=== PATIENT | male | born 1985 | race Caucasian/White ===

== ENCOUNTER 2017-08-20 14:39 | Emergency (ER) | payer MEDICAID ==
[~2017-08-20] VITALS: Ht 172.7 cm; Wt 90.7 kg
[2017-08-20 14:48] VITALS: BP_SYST 114
[2017-08-20 15:10] LABS: BILIRUBIN,URINE NEGATIVE (NEGATIVE); BLOOD, URINE NEGATIVE (NEGATIVE); CLARITY/URINE CLEAR (CLEAR); COLOR,URINE YELLOW (YELLOW); GLUCOSE,URINE NEGATIVE (NEGATIVE); KETONES,URINE NEGATIVE (NEGATIVE); LEUKOCYTE ESTERASE ,URINE NEGATIVE (NEGATIVE); NITRITE, URINE NEGATIVE (NEGATIVE); PROTEIN URINE NEGATIVE (NEGATIVE); UROBILINOGEN,URINE 0.2 (0.2-1.0)
--- NOTE | 2017-08-20 15:15 | NUR ---
Patient to ER bed 3, to await MD evaluation.
[2017-08-20 15:23] LABS: BARBITURATE, URINE NEGATIVE (NEG <=200); BENZODIAZEPINE, URINE NEGATIVE (NEG <=150); CANNABINOID, URINE NEGATIVE (NEG <=50); COCAINE, URINE NEGATIVE (NEG <=150); METHAMPHETAMINES SCREEN,URINE POSITIVE (NEG <=500); OPIATE, URINE NEGATIVE (NEG <=100); PHENCYCLIDINE SCREEN,URINE NEGATIVE (NEG <=25); UR TRICYCLIC ANTIDEPRESSANTS NEGATIVE (NEG <=300); URINE AMPHETAMINE POSITIVE (NEG <=500); URINE METHADONE NEGATIVE (NEG <=200); URINE OXYCODONE SCREEN NEGATIVE (NEG <=100); URINE PROPOXYPHENE SCREEN NEGATIVE (NEG <=300)
--- NOTE | 2017-08-20 15:25 | NUR ---
Dr Frederick at bedside to evaluate patient.
[2017-08-20] MEDS ORDERED: ONDANSETRON 4 MG ODT TAB PO ONE (15:30)
[2017-08-20] MEDS ORDERED: traMADol HCL HCL 50 MG TABLET (ULTRAM) PO ONE (15:30)
[2017-08-20] MEDS ORDERED: KETOROLAC TROMETHAMINE 60 MG/2 ML VIAL IM ONE (15:30)
--- NOTE | 2017-08-20 15:40 | NUR ---
Patient to ER via triage with c/o back pain, dizziness, and nausea. Patient reports taking [place] at home for pain without relief. Patient is awake, alert and oriented in no acute distress. Patient able to ambulate to room with slow, steady gait. No c/o pain/sob upon exertion. Patient has been and evaluated by Dr Frederick. Will continue to observe and assess.
--- NOTE | 2017-08-20 16:25 | NUR ---
Patient given written and verbal discharge instructions and verbalizes understanding. ER MD discussed with patient the results and treatment provided. Patient in stable condition. ID arm band removed. Rx of zofran, motrin, flexeril, tramadol given. Patient educated on pain management and to follow up with PMD. Pain Scale 2/10. Opportunity for questions provided and answered.
[2017-08-20 16:26] VITALS: BP_SYST 112
== END 2017-08-20 16:26 | disposition home or self-care (01) ==
LOC: SED 14:39
DX: M54.40 Lumbago with sciatica, unspecified side (principal)
CPT/HCPCS: 80307; 81003; 93005; 96372; 99285; J1885; Q0162

== ENCOUNTER 2017-08-22 13:09 | Emergency (ER) | payer MEDICAID ==
[~2017-08-22] VITALS: Ht 172.7 cm; Wt 90.7 kg
[2017-08-22 13:15] VITALS: BP_SYST 121
--- NOTE | 2017-08-22 13:26 | NUR ---
Patient to ER bed 8 to gown for evaluation. Side rails up. Report given to Corinna MOJICA
--- NOTE | 2017-08-22 13:29 | NUR ---
ER at bedside examining patient.
[2017-08-22 13:41] LABS: BILIRUBIN,URINE NEGATIVE (NEGATIVE); BLOOD, URINE NEGATIVE (NEGATIVE); CLARITY/URINE CLEAR (CLEAR); COLOR,URINE YELLOW (YELLOW); GLUCOSE,URINE NEGATIVE (NEGATIVE); KETONES,URINE NEGATIVE (NEGATIVE); LEUKOCYTE ESTERASE ,URINE NEGATIVE (NEGATIVE); NITRITE, URINE NEGATIVE (NEGATIVE); PH,URINE 5.5 (5.0-8.0); PROTEIN URINE NEGATIVE (NEGATIVE); UROBILINOGEN,URINE 0.2 (0.2-1.0)
[2017-08-22] MEDS ORDERED: ASPIRIN 325 MG TABLET PO ONE (13:45)
[2017-08-22] MEDS ORDERED: LORazepam 2 MG/ML VIAL IVP ONE (13:45)
--- NOTE | 2017-08-22 13:45 | NUR ---
Pt complains of numbness to all areas of the body, arms, legs, chest and hands since this morning after the shower. Pt has some weakness and chest wall pain that does not radiate anywhere. Pt is able to communicate in full sentences, denies SOB, n/v or fever. Pt ambulated into ER with no noted difficulty. No other injuries/complaints per pt or noted.
[2017-08-22 13:53] LABS: BASOPHILS # (AUTO) 0.1 K/uL (0.0-0.2); EOSINOPHILS # (AUTO) 0.2 K/uL (0.0-0.4); EOSINOPHILS % (AUTO) 3.2 % (0.0-4.0); HEMATOCRIT 52.5 % (36-54); HEMOGLOBIN 17.1 g/dL (14.0-18.0); LYMPHOCYTES # (AUTO) 2.6 K/uL (1.0-5.5); LYMPHOCYTES % (AUTO) 39.4 % (20.5-51.5); MEAN CORPUSCULAR HEMOGLOBIN 29 pg (27-31); MEAN CORPUSCULAR HGB CONC 33 % (32-36); MEAN CORPUSCULAR VOLUME 88 fL (79.0-98.0); MONOCYTES # (AUTO) 0.3 K/uL (0.0-1.0); MONOCYTES % (AUTO) 4.7 % (1.7-9.3); NEUTROPHILS # (AUTO) 3.5 K/uL (1.8-7.7); NEUTROPHILS % (AUTO) 51.7 % (40.0-70.0); PLATELET COUNT (AUTO) 270 K/uL (130-430); RED BLOOD CELL COUNT(AUTO) 5.97 MIL/uL (4.2-6.2); RED CELL DISTRIBUTION WIDTH 12.7 % (9.0-15.0); WHITE BLOOD COUNT (AUTO) 6.7 K/uL (4.8-10.8)
[2017-08-22 13:56] LABS: METHAMPHETAMINES SCREEN,URINE POSITIVE (NEG <=500); URINE AMPHETAMINE POSITIVE (NEG <=500)
[2017-08-22 13:57] LABS: BARBITURATE, URINE NEGATIVE (NEG <=200); BENZODIAZEPINE, URINE NEGATIVE (NEG <=150); CANNABINOID, URINE NEGATIVE (NEG <=50); COCAINE, URINE NEGATIVE (NEG <=150); OPIATE, URINE NEGATIVE (NEG <=100); PHENCYCLIDINE SCREEN,URINE NEGATIVE (NEG <=25); UR TRICYCLIC ANTIDEPRESSANTS NEGATIVE (NEG <=300); URINE METHADONE NEGATIVE (NEG <=200); URINE OXYCODONE SCREEN NEGATIVE (NEG <=100); URINE PROPOXYPHENE SCREEN NEGATIVE (NEG <=300)
[2017-08-22 14:08] LABS: ANION GAP 6 (5-15); CALCIUM 9.4 mg/dL (8.4-11.0); CHLORIDE 102 mmol/L (98-107); CREATININE 0.97 mg/dL (0.55-1.30); GLUCOSE 90 mg/dL (70-99); POTASSIUM 4.1 mmol/L (3.5-5.1); SODIUM SERUM 136 mmol/L (136-145); UREA NITROGEN, BLOOD 9 mg/dL (8-21)
[2017-08-22 14:11] LABS: GFR AFRICAN AMERICAN 116 mL/min (>90)
[2017-08-22 14:14] LABS: ALANINE AMINOTRANSFERASE 39 U/L (12-78); ALBUMIN 3.5 g/dL (3.4-4.8); ALCOHOL, BLOOD 4 mg/dL (<10); ASPARTATE AMINOTRANSFERASE 30 U/L (10-37); TOTAL BILIRUBIN 0.3 mg/dL (0.0-1.0)
[2017-08-22] MEDS ORDERED: NACL 0.9% 1,000 ML IV ONE (14:15)
[2017-08-22] MEDS ORDERED: LORazepam 2 MG/ML VIAL (FOR ER USE) ONE (14:18)
--- NOTE | 2017-08-22 14:20 | NUR ---
Medication was given to pt, tolerated it well. No noted adverse reaction, will continue to monitor.
[2017-08-22 14:44] LABS: ACETAMINOPHEN < 1 ug/mL (1-30)
[2017-08-22 15:16] VITALS: BP_SYST 118
--- NOTE | 2017-08-22 15:16 | NUR ---
Patient given written and verbal discharge instructions and verbalizes understanding. ER MD discussed with patient the results and treatment provided. Patient in stable condition. ID arm band removed. IV catheter removed intact and dressing applied, no active bleeding. Rx of ativan given. Patient educated on pain management and to follow up with PMD. Pain Scale 0. Opportunity for questions provided and answered.
== END 2017-08-22 15:16 | disposition home or self-care (01) ==
LOC: SED 13:09
DX: F41.9 Anxiety disorder, unspecified (principal); F15.10 Other stimulant abuse, uncomplicated; Z87.891 Personal history of nicotine dependence
CPT/HCPCS: 36415; 71045; 80053; 80307; 81003; 82550; 84484; 85025; 85610; 85730; 93005; 96361; 96374; 99285; G0480; G0481; G0482; J2060; J7030

== ENCOUNTER 2017-08-30 20:16 | Emergency (ER) | payer MEDICAID ==
[~2017-08-30] VITALS: Ht 172.7 cm; Wt 90.7 kg
[2017-08-30 20:31] VITALS: BP_SYST 125
--- NOTE | 2017-08-30 22:37 | NUR ---
Patient to ER bed 4 to gown for evaluation. Side rails up. Report given to GALINA HURLEY.
[2017-08-30 23:24] LABS: BASOPHILS # (AUTO) 0.1 K/uL (0.0-0.2); BASOPHILS % (AUTO) 0.6 % (0.0-2.0); EOSINOPHILS # (AUTO) 0.6 K/uL (0.0-0.4); EOSINOPHILS % (AUTO) 7.5 % (0.0-4.0); HEMOGLOBIN 14.9 g/dL (14.0-18.0); LYMPHOCYTES # (AUTO) 3.6 K/uL (1.0-5.5); LYMPHOCYTES % (AUTO) 43.2 % (20.5-51.5); MEAN CORPUSCULAR HEMOGLOBIN 29 pg (27-31); MEAN CORPUSCULAR HGB CONC 34 % (32-36); MEAN CORPUSCULAR VOLUME 86 fL (79.0-98.0); MONOCYTES # (AUTO) 0.7 K/uL (0.0-1.0); MONOCYTES % (AUTO) 8.1 % (1.7-9.3); NEUTROPHILS # (AUTO) 3.5 K/uL (1.8-7.7); NEUTROPHILS % (AUTO) 40.6 % (40.0-70.0); PLATELET COUNT (AUTO) 361 K/uL (130-430); RED BLOOD CELL COUNT(AUTO) 5.11 MIL/uL (4.2-6.2); RED CELL DISTRIBUTION WIDTH 12.8 % (9.0-15.0); WHITE BLOOD COUNT (AUTO) 8.5 K/uL (4.8-10.8)
[2017-08-30 23:38] LABS: CALCIUM 8.9 mg/dL (8.4-11.0); CREATININE 0.9 mg/dL (0.55-1.30)
[2017-08-30 23:42] LABS: ALBUMIN 3.5 g/dL (3.4-4.8); TOTAL BILIRUBIN 0.3 mg/dL (0.0-1.0)
--- NOTE | 2017-08-30 23:42 | NUR ---
PT CAME IN WITH A COMPLAINT OF DIZZINESS AND HEADACHE 12/09, NO OTHER COMPLAINT AT THIS TIME. NO FEVER NOTED. AAOX4 AND AMBULATORY. SAFETY PRECAUTION IDENTIFIED, NO ACUTE DISTRESS AT THIS TIME. WILL CONTINUE TO MONITOR PT.
--- NOTE | 2017-08-30 23:46 | NUR ---
BUD MACHADO AT BEDSIDE FOR MEDICAL EVALUATION.
[2017-08-31 00:20] VITALS: BP_SYST 115
--- NOTE | 2017-08-31 00:20 | NUR ---
Patient given written and verbal discharge instructions and verbalizes understanding. ER MD MACHADO discussed with patient the results and treatment provided. Patient in stable condition. ID arm band removed. Patient educated on pain management and to follow up with PMD. Pain Scale 0/10. Opportunity for questions provided and answered.
== END 2017-08-31 00:20 | disposition home or self-care (01) ==
LOC: SED 20:16
DX: R51 Headache (principal); F15.10 Other stimulant abuse, uncomplicated
CPT/HCPCS: 36415; 70450-TC; 71045; 80053; 85025; 99285